=== PATIENT | female | born 1975 | race Caucasian/White ===

== ENCOUNTER 2021-10-27 09:40 | Outpatient (RCR) | payer BC ==
[2021-09-28 12:09] VITALS: BP 119/76
[~2021-10-27] VITALS: Ht 167.7 cm; Wt 100.0 kg
[~2021-10-27 09:40] MED LIST: [UNRECOGNIZED DRUG - REMARK] IV SCH
[2021-10-27 09:43] VITALS: BP 124/85
[2021-10-27] MEDS ORDERED: [UNRECOGNIZED DRUG - REMARK] IV SCH (10:00)
== END 2021-10-27 11:15 | disposition home or self-care (01) ==
LOC: SDC 09:40
PROVIDERS: ATTEND Internal Medicine Gastroenterology
DX: K50.90 Crohn's disease, unspecified, without complications (principal)
CPT/HCPCS: 96365

== ENCOUNTER → 2021-11-24 | Outpatient (CLI) | payer BC ==
[~2021-11-24] VITALS: Ht 167 cm; Wt 97.0 kg
[~2021-11-24] MED LIST changes: +[UNRECOGNIZED DRUG - REMARK] IV ONE
[2021-11-24 11:05] VITALS: BP 125/85
== END ==
LOC: SDC 10:11
PROVIDERS: ATTEND Internal Medicine Gastroenterology
DX: K50.90 Crohn's disease, unspecified, without complications (principal)
CPT/HCPCS: 96365